=== PATIENT | male | born 1960 | race Caucasian/White ===

== ENCOUNTER 2022-08-24 10:33 | Inpatient (IN) | payer OTHER ==
[2022-08-24 12:04] LABS: BASO % 1.2 % (0-2.0); EOS % 1.8 % (0-4.5); HEMOGLOBIN 11.2 GM/dL (11.7-16.9); MCH 30.2 pg (25.7-33.7); MEAN CELL VOLUME 88.8 fl (80-96); MEAN PLT VOLUME 10.2 fl (7.5-11.1); MONO % 12.5 % (3.8-10.2); NEUT % 76.5 % (42.8-82.8); PLATELET COUNT 118 10^3/uL (134-434); RBC 3.72 M/mm3 (4.00-5.60); RDW 17.2 % (11.9-15.9); WHITE BLOOD COUNT 4.6 K/mm3 (4.0-10.0)
[2022-08-24 12:12] LABS: INR 1.24 (0.83-1.09); PROTHROMBIN TIME (PATIENT) 14.3 SEC (9.7-13.0)
[2022-08-24 12:21] LABS: POTASSIUM 4.9 mmol/L (3.5-5.1)
[2022-08-24 12:23] LABS: BLOOD UREA NITROGEN 15.1 mg/dL (7-18); CALCIUM 8.4 mg/dL (8.5-10.1)
[2022-08-24 12:25] LABS: ALBUMIN 2.2 g/dl (3.4-5.0); MAGNESIUM 2.2 mg/dL (1.8-2.4)
[2022-08-24 12:27] LABS: BILIRUBIN,TOTAL 1.3 mg/dL (0.2-1)
[2022-08-24 12:30] LABS: CREATININE 1.1 mg/dL (0.55-1.3)
[2022-08-24 12:32] LABS: TOT PROT 7.3 g/dl (6.4-8.2)
[2022-08-24 13:22] LABS: EPI CELLS 6 /uL (0-25.1); HYALINE CASTS 0 /uL (0-3.1); URINE APPEARANCE CLEAR; URINE BACTERIA >9,000 /uL (0-1359); URINE BILIRUBIN NEGATIVE (NEGATIVE); URINE COLOR YELLOW; URINE GLUCOSE (UA) NEGATIVE (NEGATIVE); URINE KETONE NEGATIVE (NEGATIVE); URINE LEUK ESTERASE 1+ (NEGATIVE); URINE NITRITE POSITIVE (NEGATIVE); URINE PROTEIN NEGATIVE (NEGATIVE); URINE RBC 259 /uL (0-23.9); URINE WBC 42 /uL (0-25.8)
[2022-08-24] MEDS ORDERED: oxyCODONE HCL 5 MG TABLET PO ONE (14:22)
[2022-08-24] MEDS ORDERED: FUROSEMIDE 40 MG/4 ML INJECTABLE VIAL IVPUSH ONE (14:24)
[2022-08-24] MEDS ORDERED: CEFAZOLIN 1 GM in DEXTROSE 5%-WATER - 50 ML IVPB ONE (14:24)
[2022-08-24] MEDS ORDERED: ceFAZolin SODIUM 1 GM VIAL ONE (14:54)
[2022-08-24] MEDS ORDERED: FUROSEMIDE 40 MG/4 ML INJECTABLE VIAL ONE (14:55)
[2022-08-24] MEDS ORDERED: oxyCODONE HCL 5 MG TABLET ONE ×2 (14:57→19:03)
[2022-08-24] MEDS ORDERED: LACTULOSE 20 GM/30 ML UDC (FOR ORAL USE ONLY) PO PRN (15:38)
[2022-08-24] MEDS ORDERED: DOCUSATE SODIUM 100 MG CAPSULE (FP) PO PRN (15:38)
[2022-08-24 18:14] LABS: POTASSIUM 3.5 mmol/L (3.5-5.1)
[2022-08-24 18:16] LABS: CALCIUM 8.5 mg/dL (8.5-10.1)
[2022-08-24 18:17] LABS: ALBUMIN 2.1 g/dl (3.4-5.0); BLOOD UREA NITROGEN 13.2 mg/dL (7-18); MAGNESIUM 2.1 mg/dL (1.8-2.4)
[2022-08-24 18:20] LABS: CREATININE 0.9 mg/dL (0.55-1.3)
[2022-08-24 18:22] LABS: BILIRUBIN,TOTAL 1.3 mg/dL (0.2-1); TOT PROT 6.9 g/dl (6.4-8.2)
[2022-08-24] MEDS: oxyCODONE HCL 5 MG TABLET PO PRN (19:04)
[2022-08-25] MEDS: oxyCODONE HCL 5 MG TABLET PO PRN ×5 (00:02→23:22)
[2022-08-25] MEDS: GABAPENTIN 300 MG CAPSULE PO SCH ×4 (00:03→21:55)
[2022-08-25] MEDS: BACLOFEN 10 MG TABLET (FP) PO SCH ×4 (00:04→21:55)
[2022-08-25 00:35] VITALS: BMI 29.9
[2022-08-25] MEDS: PANTOPRAZOLE 40 MG TABLET PO SCH ×2 (07:28→10:33)
[2022-08-25] MEDS: SPIRONOLACTONE 25 MG TABLET PO SCH ×2 (07:28→10:33)
[2022-08-25 08:57] LABS: HEMATOCRIT 32.3 % (35.4-49); HEMOGLOBIN 10.7 GM/dL (11.7-16.9); MCH 29.4 pg (25.7-33.7); MCHC 33.2 g/dl (32.0-35.9); MEAN CELL VOLUME 88.4 fl (80-96); MEAN PLT VOLUME 9.1 fl (7.5-11.1); PLATELET COUNT 105 10^3/uL (134-434); RBC 3.65 M/mm3 (4.00-5.60); WHITE BLOOD COUNT 5.2 K/mm3 (4.0-10.0)
[2022-08-25] MEDS: TAMSULOSIN HCL 0.4 MG CAP PO SCH (10:32)
[2022-08-25] MEDS: FUROSEMIDE 40 MG TABLET (FP) PO SCH (10:33)
[2022-08-25 14:23] LABS: BF WBC & OTHER NUCLEATED CELLS 173 /mm3
[2022-08-25 15:08] LABS: BODY FLUID MESOTHELIAL 2 %; BODY FLUID MONOCYTE 59 %
[2022-08-25] MEDS: RIFAXIMIN 550 MG TABLET PO SCH (21:55)
[2022-08-25] MEDS ORDERED: ENOXAPARIN NA (PORCINE) 100 MG/1 ML DISP.SYRIN SQ SCH (22:00)
[2022-08-26] MEDS: GABAPENTIN 300 MG CAPSULE PO SCH ×2 (05:54→16:24)
[2022-08-26] MEDS: BACLOFEN 10 MG TABLET (FP) PO SCH ×2 (05:54→16:25)
[2022-08-26] MEDS: SPIRONOLACTONE 25 MG TABLET PO SCH (09:21)
[2022-08-26] MEDS: PANTOPRAZOLE 40 MG TABLET PO SCH (09:21)
[2022-08-26] MEDS: FUROSEMIDE 40 MG TABLET (FP) PO SCH (09:21)
[2022-08-26] MEDS: TAMSULOSIN HCL 0.4 MG CAP PO SCH (09:21)
[2022-08-26] MEDS: RIFAXIMIN 550 MG TABLET PO SCH (09:22)
[2022-08-26] MEDS ORDERED: KETAMINE HCL 500 MG/10 ML VIAL ONE (11:43)
[2022-08-26] MEDS ORDERED: MIDAZOLAM HCL 2 MG/2 ML SINGLE DOSE VIAL ONE (11:43)
[2022-08-26 13:01] VITALS: BP 115/63; PULSE 78; RESP 19; TEMP 97.4
[2022-08-26] MEDS ORDERED: OCTREOTIDE ACETATE 200 MCG, OCTREOTIDE ACETATE 1,000 MCG in DEXTROSE 5%-WATER - 496 ML IVPB SCH (13:15)
[2022-08-26] MEDS ORDERED: OCTREOTIDE ACETATE 50 MCG/1 ML - 1 ML VIAL IVPUSH ONE (13:30)
[2022-08-26 14:08] LABS: BODY FLUID ALBUMIN 0.4 g/dL (Not Estab.)
[2022-08-26] MEDS ORDERED: ACETAMINOPHEN 1000 MG/100 ML BAG IVPB ONE (18:51)
[2022-08-26] MEDS ORDERED: PANTOPRAZOLE SODIUM 40 MG VIAL IVPUSH SCH (22:00)
[2022-08-30 04:07] LABS: FIBROSIS SCORE. 0.88 (0.00-0.21); HCV ALPHA 2 MACRO CHART 207 mg/dL (110-276); NECRO.INFLAM ACT.SCORE 0.21 (0.00-0.17); NECROINFLAM. ACTIVITY GRADE A0-A1 (.)
== END 2022-08-26 20:15 | disposition short-term general hospital (02) ==
LOC: JER 10:33 → JERBED 15:37 → J7W 21:33
PROVIDERS: ADMIT Family Medicine; ATTEND Family Medicine
PROC: 0W9G3ZZ Drainage of Peritoneal Cavity, Percutaneous Approach (ICD-10-PCS; 2022-08-26)
PROC: 0DB68ZX Excision of Stomach, Via Natural or Artificial Opening Endoscopic, Diagnostic (ICD-10-PCS; principal; 2022-08-26 11:00)
DX: K74.69 Other cirrhosis of liver (principal); R18.8 Other ascites; I81 Portal vein thrombosis; E11.9 Type 2 diabetes mellitus without complications; I10 Essential (primary) hypertension; J44.9 Chronic obstructive pulmonary disease, unspecified; I86.4 Gastric varices; I89.0 Lymphedema, not elsewhere classified; F41.9 Anxiety disorder, unspecified; B18.2 Chronic viral hepatitis C; I87.2 Venous insufficiency (chronic) (peripheral); R16.0 Hepatomegaly, not elsewhere classified; I85.10 Secondary esophageal varices without bleeding; K25.9 Gastric ulcer, unspecified as acute or chronic, without hemorrhage or perforation; K76.82 Hepatic encephalopathy
CPT/HCPCS: 36415; 70450-TC; 74170-TC; 74176-TC; 76942-TC; 80053; 81003; 82042; 82105; 82150; 82172; 82465; 82945; 82977; 83010; 83615; 83735; 83883; 83986; 84157; 84460; 84478; 85025; 85027; 85610; 86705; 86707; 86708; 86850; 86900; 86901; 87070; 87075; 87086; 87102; 87116; 87186; 87205; 87206; 87210; 87340; 87350; 87517; 87522; 88108; 88305-TC; 93005; 93010; 93306-TC; 99285-25; C9803-CS; J0475; U0003; U0005